=== PATIENT | female | born 1965 | race Caucasian/White ===

== ENCOUNTER 2017-03-31 18:09 | Observation (INO) | payer BC, OTHER ==
[~2017-03-31] VITALS: Ht 167.6 cm; Wt 55.5 kg
[~2017-03-31 18:09] MED LIST: PERC5TAB12 PO; PROPOFOL 200 MG/20 ML AMP IV ONE; TYLE500T PO
[2017-03-31 18:12] VITALS: BP 157/77; PULSE 78; RESP 20; TEMP 98.3; O2SAT 98
[2017-03-31] MEDS ORDERED: SODIUM CHLOR 0.9% 1000 ML INJ 1,000 ML IV SCH (19:24)
[2017-03-31] MEDS ORDERED: ONDANSETRON HCL 4 MG/2 ML VIAL IVP ONE (19:30)
[2017-03-31] MEDS ORDERED: SODIUM CHLORIDE 0.9% FLUSH 10 ML FLUSH IV FLUSH PRN ×2 (19:30→21:45)
[2017-03-31] MEDS ORDERED: PANTOPRAZOLE SODIUM 40 MG VIAL IVP ONE (19:30)
--- NOTE | 2017-03-31 19:34 | PD ---
HPI Chief Complaint: Abdominal Pain Time Seen by Provider: 19:24 Travel History International Travel<30 days: No Contact w/Intl Traveler<30days: No Traveled to known affect area: No History of Present Illness HPI 51-year-old female presents to the emergency department by private transportation the care of her for evaluation of abdominal pain with vomiting. Patient was just seen by her stranding machine operator Dr. her chopra that he center from the office to the emergency room for further evaluation of abdominal pain and possible bowel obstruction. Patient has a history of inflammatory bowel disease/Crohn's and has undergone partial colectomy in the past. Patient states she's had progressively worsening abdominal pain over the past 2 weeks. Patient states she has not had a bowel movement or passed flatus 6 days. Patient states her emesis reminds her of stool. Patient denies bilious emesis coffee-ground emesis or hematemesis. Patient denies fever or chills. Patient was in the emergency department for [facility] yesterday for evaluation a CT abdomen and pelvis was reportedly negative for acute process. Patient was given prescription for oxycodone 7.5 mg to be taken for pain. Patient rates her pain as 8/10 in intensity. Patient states she is status post hysterectomy and cholecystectomy. Patient with history of endometriosis as well. He should also has history of seizure disorder and anxiety depression. Patient denies any recent change to her medications. No reported or voiced complaint of upper respiratory infection symptoms shortness of breath chest pain flank pain urinary symptoms injury or fall. PFSH Past Medical History Narrative Medical Inflammatory bowel disease/Crohn's with partial colectomy endometriosis with hysterectomy cholecystectomy anxiety depression seizure disorder wrist surgery; occasional alcohol use tobacco use; nursing notes reviewed Autoimmune Disease: Yes (CROHN'S) Diminished Hearing: No Reproductive: Yes (Endometriosis; Had uterus reconstructed for 2nd .) Immunizations Current: No Seizures: Yes (Last seizure was May 2009 "small one" in 's office ) Menopausal: Yes : 3 Para: 3 Miscarriage: 0 : 0 Past Surgical History Abdominal Surgery: Yes (COLECTOMY R/T CROHN'S) AICD: No Body Medical Devices: HARDWARE LEFT WRIST Gynecologic Surgery: Yes Hysterectomy: Yes (Total) Joint Replacement: No Pacemaker: No Social History Alcohol Use: Yes (Occassionally) Tobacco Use: Yes (1PPD) Substance Use: No Allergies-Medications (Allergen,Severity, Reaction): Coded Allergies: penicillin G (Unverified Allergy, Mild, HIVES, 03/23/17) Reported Meds & Prescriptions Reported Meds & Active Scripts Active Percocet 5-325 mg (Oxycodone/Acetaminophen) 1 Tab 1 Tab PO Q4H PRN Reported Tylenol (Acetaminophen) 500 Mg Tab 1,000 Mg PO Q6H Review of Systems Except as stated in HPI: all other systems reviewed are Neg General / Constitutional: No: Fever, Chills HENT: No: Congestion Cardiovascular: No: Chest Pain or Discomfort Respiratory: No: Shortness of Breath Gastrointestinal: Positive: Nausea, Vomiting, Abdominal Pain, Constipation, Changes in Bowel Habits (no BM or flatus x 6 days), No: Diarrhea, Hematemesis, Hematochezia, Loss of Appetite Genitourinary: No: Dysuria Musculoskeletal: No: Myalgias, Arthralgias Skin: No Rash Psychiatric: No: Anxiety Hematologic/Lymphatic: No: Lymph Node Enlargement Physical Exam Narrative GENERAL: Well-developed well-nourished female in no acute distress no respiratory distress; GCS 15; vital signs are normal range except for elevation of blood pressure 157/77 SKIN: Warm and dry. HEAD: Normocephalic. EYES: No scleral icterus. No injection or drainage. NECK: Supple, trachea midline. No JVD or lymphadenopathy. CARDIOVASCULAR: Regular rate and rhythm without murmurs, gallops, or rubs. RESPIRATORY: Breath sounds equal bilaterally. No accessory muscle use. GASTROINTESTINAL: Abdomen soft, diffusely tender primarily right lower quadrant without guarding or rebound, nondistended. MUSCULOSKELETAL: No cyanosis, or edema. BACK: Nontender without obvious deformity. No CVA tenderness. Data Data Last Documented VS Vital Signs Date Time Temp Pulse Resp B/P (MAP) Pulse Ox O2 Delivery O2 Flow Rate FiO2 03/31/17 18:12 98.3 78 20 157/77 (103) 98 Room Air Orders Orders Complete Blood Count With Diff (03/31/17 19:24) Comprehensive Metabolic Panel (03/31/17 19:24) Lipase (03/31/17 19:24) Lactic Acid (03/31/17 19:24) Urinalysis - C+S If Indicated (03/31/17 19:24) Abdomen, Flat & Upright (03/31/17 ) Iv Access Insert/Monitor (03/31/17 19:24) Ecg Monitoring (03/31/17 19:24) Oximetry (03/31/17 19:24) Ondansetron Inj (Zofran Inj) (03/31/17 19:30) Pantoprazole Inj (Protonix Inj) (03/31/17 19:30) Sodium Chlor 0.9% 1000 Ml Inj (Ns 1000 M (03/31/17 19:24) Sodium Chloride 0.9% Flush (Ns Flush) (03/31/17 19:30) MDM Medical Decision Making Medical Screen Exam Complete: Yes Emergency Medical Condition: Yes Medical Record Reviewed: Yes Differential Diagnosis Abdominal pain, small bowel dissection, exacerbation Crohn's disease/ inflammatory bowel disease, appendicitis, colitis, dehydration, electrolyte disturbance Narrative Course IV access obtained zofran 4 mg IV and dilaudid 1 mg IV administered and IV fluid Hazel Nath MD Mar 31, 2017 19:34
[2017-03-31 19:50] VITALS: BP 112/66; PULSE 65; RESP 18; O2SAT 98
[2017-03-31 20:04] LABS: AUTOMATED NEUTROPHIL # 5.9 TH/MM3 (1.8-7.7); BASOPHIL # 0.1 TH/MM3 (0-0.2); BASOPHIL % 0.6 % (0.0-2.0); EOSINOPHIL # 0.1 TH/MM3 (0-0.4); EOSINOPHIL % 1.2 % (0.0-4.0); HEMATOCRIT 44.2 % (35.0-46.0); HEMO FLAGS DIFF FINAL; LYMPHOCYTE # 2.7 TH/MM3 (1.0-4.8); MEAN CELL VOLUME 96.3 FL (80.0-100.0); MEAN CORPUSCULAR HEMOGLOBIN 31.8 PG (27.0-34.0); MONO % 8.3 % (0.0-8.0); NEUT % 61.9 % (16.0-70.0); PLATELET COUNT 230 TH/MM3 (150-450); RED BLOOD COUNT 4.59 MIL/MM3 (4.00-5.30); RED CELL DISTRIBUTION WIDTH 13.5 % (11.6-17.2); WHITE BLOOD COUNT 9.5 TH/MM3 (4.0-11.0)
[2017-03-31 20:07] LABS: BLOOD, URINE TRACE (NEG); COMMENT (UR) CULT NOT INDICATED; CULTURE IF INDICATED CULT NOT INDICATED; GLUCOSE,URINE NEG (NEG); KETONE, URINE NEG (NEG); MUCUS URINE FEW /lpf (OCC); NITRITE,URINE NEG (NEG); PH, URINE 5.5 (5.0-8.5); SQUAMOUS EPITHELIAL CELL URINE 3 /hpf (0-5); URINE COLOR YELLOW (YELLW/STRAW)
[2017-03-31 20:21] LABS: ALT (GPT) 464 U/L (10-53); ANION GAP 4 MEQ/L (5-15); AST (GOT) 520 U/L (15-37); BICARBONATE 30.3 MEQ/L (21.0-32.0); BLOOD UREA NITROGEN 14 MG/DL (7-18); CHLORIDE 106 MEQ/L (98-107); GLOMERULAR FILTRATION RATE 65 ML/MIN (>89); POTASSIUM 3.9 MEQ/L (3.5-5.1); SODIUM (NA) 140 MEQ/L (136-145)
[2017-03-31 20:24] LABS: ALKALINE PHOSPHATASE 149 U/L (45-117); TOTAL BILIRUBIN ADULT 0.4 MG/DL (0.2-1.0)
--- NOTE | 2017-03-31 20:37 | RADRPT ---
EXAM DATE/TIME: 03/31/2017 20:27 [facility] COMPARISON: No previous studies available for comparison. INDICATIONS : Abdominal pain, vomiting for 2 weeks MEDICAL HISTORY : Crohn's disease SURGICAL HISTORY : Cholecystectomy. Large bowel resection ENCOUNTER: Initial ACUITY: 1 day PAIN SCORE: 10/10 LOCATION: Bilateral upper abdomen FINDINGS: Supine and upright views of the abdomen were performed. The abdominal bowel gas pattern is normal. No evidence of obstruction or free air. No acute bony findings. CONCLUSION: 1. No acute findings. Dave Bowers MD on March 31, 2017 at 20:33 Board Certified Radiologist. This report was verified electronically.
[2017-03-31] MEDS ORDERED: SODIUM CHLOR 0.9% 1000 ML INJ 1,000 ML IV ONE (20:45)
[2017-03-31] MEDS ORDERED: HYDROmorphone HCL PF 1 MG/ML VIAL IV PUSH ONE ×2 (20:45→22:15)
[2017-03-31] MEDS ORDERED: SODIUM CHLORIDE 0.9% FLUSH 10 ML FLUSH IVF PRN (21:30)
[2017-03-31] MEDS ORDERED: NALOXONE HCL 0.4 MG/ML AMP IV PRN (21:45)
[2017-03-31 22:08] VITALS: BP 165/62; PULSE 59; RESP 18; O2SAT 96
[2017-04-01] VITALS (9 sets, daily range): BP systolic 91–129; BP diastolic 54–77; PULSE 56–65; RESP 16–21; TEMP 97.7–98.3; O2SAT 95–100
[2017-04-01] MEDS ORDERED: MORPHINE SULFATE 4 MG/ML INJ IV PUSH PRN
[2017-04-01] MEDS ORDERED: ONDANSETRON HCL 4 MG/2 ML VIAL IV PUSH PRN
--- NOTE | 2017-04-01 04:01 | HHI.HP ---
HPI Service [facility] Primary Care Physician No Primary Care Physician Admission Diagnosis Vomiting; elevated transaminases;h/o Crohns', h/o sbo Diagnoses: (1) Abdominal pain (2) Nausea & vomiting Chief Complaint: Abdominal pain, nausea, vomiting Travel History International Travel<30 Days: No Contact w/Intl Traveler <30 Da: No Traveled to Known Affected Are: No History of Present Illness Written by Tiana Montoya, acting as scribe for Dr. Ocampo on 04/01/17 at 04:00. Last BM 6 days ago; has been having severe abdominal pain with nausea and vomiting that she believes is related to her reported history of Crohn's disease. Denies hematochezia or black stools. States that she was sent by baggage handling supervisor Dr. Du for evaluation after he saw her for "two minutes " in his office yesterday. Denies fever. Reports that she is vomiting stool. Over the last two weeks: No n/v, fevers, syncope, chest pain. The patient reports that she is s/p hemicolectomy for Crohn's Does not take any immunosuppressant medications. The patient is very rude and abrasive toward examiner throughout visit. Towards the end of the visit, she starts questioning treatment recommendation by insisting that Crohn's disease is not treated with steroids and stating that in "all of her years with Crohn's disease", she has never been placed on steroids. She was at [facility] on 03/30/17 for mild colitis per CT abdomen - records from [facility] reviewed. Review of Systems Except as stated in HPI: all other systems reviewed are Neg Past Family Social History Past Medical History Crohn's disease Denies any other medical conditions. Past Surgical History Hysterectomy Hemicolectomy - Crohn's - strangulation of bowel/bowel obstruction Reported Medications Reported Meds & Active Scripts Active No Active Prescriptions or Reported Medications . Allergies: Coded Allergies: penicillin G (Verified Allergy, Mild, HIVES, 03/31/17) Active Ordered Medications Current Medications Ondansetron HCl (Zofran Inj) 4 mg ONCE ONCE IVP Last administered on 19:51; Start 03/31/17 at 19:30; Stop 03/31/17 at 19:31; Status DC Pantoprazole Sodium (Protonix Inj) 40 mg ONCE ONCE IVP Last administered on 19:51; Start 03/31/17 at 19:30; Stop 03/31/17 at 19:31; Status DC Sodium Chloride 1,000 ml @ 125 mls/hr Q8H IV Last administered on 03/31/17 19 :51; Start 03/31/17 at 19:24; Stop 04/01/17 at 03:23; Status DC Sodium Chloride (NS Flush) 2 ml UNSCH PRN IV FLUSH FLUSH AFTER USING IV ACCESS ; Start 03/31/17 at 19:30; Stop 03/31/17 at 21:45; Status DC Hydromorphone HCl (Dilaudid Pf Inj) 0.5 mg ONCE ONCE IV PUSH Last administered on 03/31/17 20:55; Start 03/31/17 at 20:45; Stop 03/31/17 at 20:46 ; Status DC Sodium Chloride 1,000 ml @ 999 mls/hr BOLUS ONCE IV ; Start 03/31/17 at 20:45 ; Stop 03/31/17 at 21:45; Status DC Sodium Chloride (NS Flush) 2 ml BID IV FLUSH ; Start 04/01/17 at 09:00 Sodium Chloride (NS Flush) 2 ml UNSCH PRN IVF FLUSH AFTER USING IV ACCESS; Start 03/31/17 at 21:30 Sodium Chloride (NS Flush) 2 ml UNSCH PRN IV FLUSH FLUSH AFTER USING IV ACCESS ; Start 03/31/17 at 21:45; Stop 03/31/17 at 21:45; Status DC Sodium Chloride (NS Flush) 2 ml BID IV FLUSH ; Start 04/01/17 at 09:00; Stop at 09:00; Status DC Naloxone HCl (Narcan Inj) 0.4 mg UNSCH PRN IV SEE LABEL COMMENTS; Start at 21:45 Hydromorphone HCl (Dilaudid Pf Inj) 0.5 mg ONCE ONCE IV PUSH Last administered on 03/31/17 22:15; Start 03/31/17 at 22:15; Stop 03/31/17 at 22:16 ; Status DC Pneumococcal Polyvalent Vaccine (Pneumovax-23 Inj) 25 mcg ONCE ONCE IM ; Start 04/01/17 at 10:00; Stop 04/01/17 at 10:01 Influenza Virus Vaccine (Flu (Quadrivalent) Vaccine Inj) 0.5 ml ONCE ONCE IM ; Start 04/01/17 at 10:00; Stop 04/01/17 at 10:01; Status Cancel Ondansetron HCl (Zofran Inj) 4 mg Q6HR PRN IV PUSH NAUSEA OR VOMITING; Start at 00:00 Morphine Sulfate (Morphine Inj) 3 mg Q3H PRN IV PUSH PAIN SCALE 5 TO 10 Last administered on 04/01/17t 00:12; Start 04/01/17 at 00:00 . Family History Denies any family medical illnesses . Social History Tobacco: smokes 1 PPD Alcohol: social use Illicit Drugs: denies . Physical Exam Vital Signs Vital Signs Date Time Temp Pulse Resp B/P (MAP) Pulse Ox O2 Delivery O2 Flow Rate FiO2 04/01/17 01:30 18 04/01/17 00:01 98.1 57 16 91/54 (66) 95 03/31/17 23:21 18 03/31/17 22:44 03/31/17 22:08 59 18 165/62 (96) 96 Room Air 03/31/17 19:50 18 98 Room Air 03/31/17 19:50 65 18 112/66 (81) 98 Room Air 03/31/17 19:50 98 21 03/31/17 18:12 98.3 78 20 157/77 (103) 98 Room Air Physical Exam GENERAL: This is an aggravated, abrasive female patient, in no apparent distress. SKIN: No rashes. Cool and dry. HEAD: Atraumatic. Normocephalic. No temporal or scalp tenderness. EYES: Pupils equal round and reactive. No injection or drainage. ENT: Nose without bleeding, purulent drainage or septal hematoma. Airway patent. NECK: Trachea midline. No JVD. CARDIOVASCULAR: Regular rate and rhythm without murmurs, gallops, or rubs. RESPIRATORY: Clear to auscultation. Breath sounds equal bilaterally. No wheezes , rales, or rhonchi. GASTROINTESTINAL: Abdomen soft, non-tender, nondistended. No guarding. MUSCULOSKELETAL: Extremities without clubbing, cyanosis, or edema. No calf tenderness. NEUROLOGICAL: Awake and alert. Motor and sensory grossly within normal limits. . Laboratory Laboratory Tests Test 03/31/17 19:40 White Blood Count 9.5 Red Blood Count 4.59 Hemoglobin 14.6 Hematocrit 44.2 Mean Corpuscular Volume 96.3 Mean Corpuscular Hemoglobin 31.8 Mean Corpuscular Hemoglobin Concent 33.0 Red Cell Distribution Width 13.5 Platelet Count 230 Mean Platelet Volume 8.0 Neutrophils (%) (Auto) 61.9 Lymphocytes (%) (Auto) 28.0 Monocytes (%) (Auto) 8.3 Eosinophils (%) (Auto) 1.2 Basophils (%) (Auto) 0.6 Neutrophils # (Auto) 5.9 Lymphocytes # (Auto) 2.7 Monocytes # (Auto) 0.8 Eosinophils # (Auto) 0.1 Basophils # (Auto) 0.1 CBC Comment DIFF FINAL Differential Comment Urine Color YELLOW Urine Turbidity CLEAR Urine pH 5.5 Urine Specific [place] 1.035 Urine Protein TRACE Urine Glucose (UA) NEG Urine Ketones NEG Urine Occult Blood TRACE Urine Nitrite NEG Urine Bilirubin NEG Urine Urobilinogen 2.0 Urine Leukocyte Esterase SMALL Urine RBC 3 Urine WBC 2 Urine Squamous Epithelial Cells 3 Urine Mucus FEW Microscopic Urinalysis Comment CULT NOT INDICATED Blood Urea Nitrogen 14 Creatinine 0.91 Random Glucose 90 Total Protein 7.2 Albumin 4.0 Calcium Level 9.1 Alkaline Phosphatase 149 Aspartate Amino Transf (AST/SGOT) 520 Alanine Aminotransferase (ALT/SGPT) 464 Total Bilirubin 0.4 Sodium Level 140 Potassium Level 3.9 Chloride Level 106 Carbon Dioxide Level 30.3 Anion Gap 4 Estimat Glomerular Filtration Rate 65 Lactic Acid Level 0.8 Lipase 305 Result Diagram: 03/31/17193903/31/171939 Imaging Last Impressions Abdomen X-Ray 03/31/17 0000 Signed Impressions: Service Date/Time: Friday, March 31, 2017 20:27 - CONCLUSION: 1. No acute findings. Dave Bowers MD . Caprini VTE Risk Assessment Caprini VTE Risk Assessment: Mod/High Risk (score >= 2) Caprini Risk Assessment Model Point Value = 1 Point Value = 2 Point Value = 3 Point Value = 5 Age 41-60 Minor surgery BMI > 25 kg/m2 Swollen legs Varicose veins or History of unexplained or recurrent spontaneous Oral contraceptives or hormone replacement Sepsis (< 1 month) Serious lung disease, including pneumonia (< 1 month) Abnormal pulmonary function Acute myocardial infarction Congestive heart failure (< 1 month) History of inflammatory bowel disease Medical patient at bed rest Age 61-74 Arthroscopic surgery Major open surgery (> 45 min) Laparoscopic surgery (> 45 min) Malignancy Confined to bed (> 72 hours) Immobilizing plaster cast Central venous access Age >= 75 History of VTE Family history of VTE Factor V Leiden Prothrombin [id number] Lupus anticoagulant Anticardiolipin antibodies Elevated serum homocysteine Heparin-induced thrombocytopenia Other congenital or acquired thrombophilia Stroke (< 1 month) Elective arthroplasty Hip, pelvis, or leg fracture Acute spinal cord injury (< 1 month) Prophylaxis Regimen Total Risk Factor Score Risk Level Prophylaxis Regimen 0-1 Low Early ambulation 2 Moderate Order ONE of the following: *Sequential Compression Device (SCD) *Heparin 5000 units SQ BID 3-4 Higher Order ONE of the following medications: *Heparin 5000 units SQ TID *Enoxaparin/Lovenox 40 mg SQ daily (WT < 150 kg, CrCl > 30 mL/min) *Enoxaparin/Lovenox 30 mg SQ daily (WT < 150 kg, CrCl > 10-29 mL/min) *Enoxaparin/Lovenox 30 mg SQ BID (WT < 150 kg, CrCl > 30 mL/min) AND/OR *Sequential Compression Device (SCD) 5 or more Highest Order ONE of the following medications: *Heparin 5000 units SQ TID (Preferred with Epidurals) *Enoxaparin/Lovenox 40 mg SQ daily (WT < 150 kg, CrCl > 30 mL/min) *Enoxaparin/Lovenox 30 mg SQ daily (WT < 150 kg, CrCl > 10-29 mL/min) *Enoxaparin/Lovenox 30 mg SQ BID (WT < 150 kg, CrCl > 30 mL/min) AND *Sequential Compression Device (SCD) Assessment and Plan Problem List: (1) Abdominal pain ICD Code: R10.9 - Unspecified abdominal pain Status: Acute (2) Nausea & vomiting ICD Code: R11.2 - Nausea with vomiting, unspecified Status: Acute Assessment and Plan Abdominal pain, nausea, and vomiting - patient refusing treatment with steroids - Changed PRN morphine to Toradol 15 mg IV q6h PRN pain > 6 - Zofran 4 mg IV q6h PRN n/v - consult gastroenterology - Dr. Du - appreciate assistance DVT prophylaxis - TEDs/SCDs This note was transcribed by scribe [Tiana Montoya]. I, Dr. Sam Ocampo personally performed the history, physical exam, and medical decision making; and confirmed the accuracy of the information in the transcribed note. Authenticated by Dr. Sam Ocampo on 04/01/17 at 04:00. Discussed Condition With ER physician, RN, and patient . Problem Qualifiers (1) Abdominal pain: Qualified Codes: R10.84 - Generalized abdominal pain (2) Nausea & vomiting: Tiana Montoya Apr 01, 2017 04:01 Sam Ocampo MD Apr 01, 2017 04:49
[2017-04-01] MEDS ORDERED: KETOROLAC TROMETHAMINE 30 MG/ML (IVP) VIAL IV PUSH PRN (05:15)
[2017-04-01 05:35] LABS: AUTOMATED NEUTROPHIL # 4.4 TH/MM3 (1.8-7.7); BASOPHIL # 0.1 TH/MM3 (0-0.2); BASOPHIL % 0.7 % (0.0-2.0); EOSINOPHIL # 0.1 TH/MM3 (0-0.4); EOSINOPHIL % 1.7 % (0.0-4.0); HEMATOCRIT 39.2 % (35.0-46.0); HEMO FLAGS DIFF FINAL; LYMPH % 35.6 % (9.0-44.0); LYMPHOCYTE # 2.8 TH/MM3 (1.0-4.8); MEAN CELL VOLUME 96.7 FL (80.0-100.0); MEAN CORPUSCULAR HEMOGLOBIN 31.9 PG (27.0-34.0); MONO % 6.6 % (0.0-8.0); NEUT % 55.4 % (16.0-70.0); PLATELET COUNT 200 TH/MM3 (150-450); RED BLOOD COUNT 4.06 MIL/MM3 (4.00-5.30); RED CELL DISTRIBUTION WIDTH 13.7 % (11.6-17.2); WHITE BLOOD COUNT 7.9 TH/MM3 (4.0-11.0)
[2017-04-01 05:46] LABS: BICARBONATE 24.5 MEQ/L (21.0-32.0); POTASSIUM 4.3 MEQ/L (3.5-5.1)
--- NOTE | 2017-04-01 08:36 | PD.CONS ---
HPI History of Present Illness This is a 51 year old female who was diagnosed with Crohn's eight years ago, when she required surgery for a bowel obstruction. She reports that she was on a "bunch of medications" including Humira and other pills, but reports she stopped them 4-5 years ago. Her last colonoscopy was 4 years ago. This was done at [facility]. She reports that since that time, she has had her "good days and bad days." She reports with her flares, she gets constipated and has significant abdominal pain. This flare started up about 2 weeks ago. She has severe mid abdominal pain that is sharp and "feels as if someone is ripping out my belly button" that radiates to her entire abdomen and back. She has associated nausea/vomiting, bilious material but no hematemesis. Her last bowel movement was 6 days ago. She does not take anything for constipation. She denies any rectal bleeding. She has lost about 10 lbs in the past 2-3 months. There are no aggravating factors. She is taking Advil at home, but reports that this is not helping. She states she is very frustrated because she is hungry and in pain and no one is helping her and she reports that she could be doing this at home. She reports that she saw Dr. Du yesterday and he took a look at her belly and told her to go to the ER. She denies any history of liver disease. She reports that she only occasionally drinks ETOH. She denies any new medications or herbal supplements. She was seen in the ER at [facility] on 03/30/17 for complaints of abdominal pain 2 weeks. At that time her CBC was unremarkable other than WBC 11.0. LFTs were total bilirubin 0.3, AST 18, ALT 17, alkaline phosphatase 95. CT scan of the abdomen and pelvis with IV contrast revealed a mild colitis suspected in the rectosigmoid colon. There may be one thickened loop of small bowel in the proximal jejunum where this may be secondary to under distention. The distal small bowel has fluid within it which may represent diarrhea. No evidence to suggest obstruction. She was discharged with Lortab Zofran Flagyl and Cipro and instructed to follow-up with GI in 1-2 days. The patient was seen yesterday in our office and was referred to the hospital for significant abdominal pain (Kayla Barker) PFSH Past Medical History Crohn's disease Past Surgical History Hysterectomy Hemicolectomy - Crohn's - strangulation of bowel/bowel obstruction Cholecystectomy (Kayla Barker) Coded Allergies: penicillin G (Verified Allergy, Mild, HIVES, 03/31/17) Medications Allergies Coded Allergies Type Severity Reaction Last Updated Verified penicillin G Allergy Mild HIVES 03/31/17 Yes Active Scripts Medications Dose Route/Sig Max Daily Dose Days Date Category No Active Prescriptions or Reported Medications Rx Advil Family History No family hx of IBD, esophageal, gastric, or colorectal cancer Social History She smokes 1ppd for many years Occasional ETOH use No illicit drug use. (Kayla Barker) Review of Systems Constitutional: COMPLAINS OF: Weight loss, DENIES: Fever, Chills, Change in appetite Respiratory: DENIES: Cough, Shortness of breath Cardiovascular: DENIES: Chest pain Gastrointestinal: COMPLAINS OF: Abdominal pain, Constipation, Nausea, Vomiting , DENIES: Black stools, Bloody stools, Diarrhea, Swelling of Abdomen, Heartburn , Hematemesis Musculoskeletal: DENIES: Joint pain Integumentary: DENIES: Abnormal pigmentation Hematologic/lymphatic: DENIES: Bruising Neurologic: DENIES: Headache Psychiatric: DENIES: Confusion (Kayla Barker) GI Exam Vitals I&O Vital Signs Date Time Temp Pulse Resp B/P (MAP) Pulse Ox O2 Delivery O2 Flow Rate FiO2 04/01/17 08:22 97.7 59 21 108/56 (73) 98 04/01/17 08:07 21 04/01/17 06:22 18 04/01/17 04:32 98.1 64 18 101/65 (77) 97 04/01/17 01:30 18 04/01/17 00:01 98.1 57 16 91/54 (66) 95 03/31/17 23:21 18 03/31/17 22:44 03/31/17 22:08 59 18 165/62 (96) 96 Room Air 03/31/17 19:50 18 98 Room Air 03/31/17 19:50 65 18 112/66 (81) 98 Room Air 03/31/17 19:50 98 21 03/31/17 18:12 98.3 78 20 157/77 (103) 98 Room Air I/O 03/31/17 03/31/17 03/31/17 04/01/17 04/01/17 04/01/17 07:00 15:00 23:00 07:00 15:00 23:00 Intake Total 1000 ml 300 ml Balance 1000 ml 300 ml Intake Oral 300 ml IV Total 1000 ml Imaging Last Impressions Abdomen X-Ray 03/31/17 0000 Signed Impressions: Service Date/Time: Friday, March 31, 2017 20:27 - CONCLUSION: 1. No acute findings. Dave Bowers MD Laboratory Test 03/31/17 19:40 04/01/17 05:20 White Blood Count 9.5 TH/MM3 7.9 TH/MM3 Red Blood Count 4.59 MIL/MM3 4.06 MIL/MM3 Hemoglobin 14.6 GM/DL 12.9 GM/DL Hematocrit 44.2 % 39.2 % Mean Corpuscular Volume 96.3 FL 96.7 FL Mean Corpuscular Hemoglobin 31.8 PG 31.9 PG Mean Corpuscular Hemoglobin Concent 33.0 % 33.0 % Red Cell Distribution Width 13.5 % 13.7 % Platelet Count 230 TH/MM3 200 TH/MM3 Mean Platelet Volume 8.0 FL 8.0 FL Neutrophils (%) (Auto) 61.9 % 55.4 % Lymphocytes (%) (Auto) 28.0 % 35.6 % Monocytes (%) (Auto) 8.3 % 6.6 % Eosinophils (%) (Auto) 1.2 % 1.7 % Basophils (%) (Auto) 0.6 % 0.7 % Neutrophils # (Auto) 5.9 TH/MM3 4.4 TH/MM3 Lymphocytes # (Auto) 2.7 TH/MM3 2.8 TH/MM3 Monocytes # (Auto) 0.8 TH/MM3 0.5 TH/MM3 Eosinophils # (Auto) 0.1 TH/MM3 0.1 TH/MM3 Basophils # (Auto) 0.1 TH/MM3 0.1 TH/MM3 CBC Comment DIFF FINAL DIFF FINAL Differential Comment Urine Color YELLOW Urine Turbidity CLEAR Urine pH 5.5 Urine Specific [place] 1.035 Urine Protein TRACE mg/dL Urine Glucose (UA) NEG mg/dL Urine Ketones NEG mg/dL Urine Occult Blood TRACE Urine Nitrite NEG Urine Bilirubin NEG Urine Urobilinogen 2.0 MG/DL Urine Leukocyte Esterase SMALL Urine RBC 3 /hpf Urine WBC 2 /hpf Urine Squamous Epithelial Cells 3 /hpf Urine Mucus FEW /lpf Microscopic Urinalysis Comment CULT NOT INDICATED Blood Urea Nitrogen 14 MG/DL 12 MG/DL Creatinine 0.91 MG/DL 0.62 MG/DL Random Glucose 90 MG/DL 83 MG/DL Total Protein 7.2 GM/DL Albumin 4.0 GM/DL Calcium Level 9.1 MG/DL 8.0 MG/DL Alkaline Phosphatase 149 U/L Aspartate Amino Transf (AST/SGOT) 520 U/L Alanine Aminotransferase (ALT/SGPT) 464 U/L Total Bilirubin 0.4 MG/DL Sodium Level 140 MEQ/L 140 MEQ/L Potassium Level 3.9 MEQ/L 4.3 MEQ/L Chloride Level 106 MEQ/L 111 MEQ/L Carbon Dioxide Level 30.3 MEQ/L 24.5 MEQ/L Anion Gap 4 MEQ/L 5 MEQ/L Estimat Glomerular Filtration Rate 65 ML/MIN 102 ML/MIN Lactic Acid Level 0.8 mmol/L Lipase 305 U/L Physical Examination HEENT: Normocephalic; atraumatic; no jaundice. CHEST: CTA CARDIAC: RRR ABDOMEN: Soft,mildly distended, nontender; no hepatosplenomegaly; bowel sounds are present in all four quadrants. EXTREMITIES: No clubbing, cyanosis, or edema. SKIN: Normal; no rash; no jaundice. BARREL INSPECTOR: No focal deficits; alert and oriented times three. (Kayla Barker) Assessment and Plan Plan ASSESSMENT: - Abdominal pain with associated n/v/constipation. Pt reports a hx of Crohn's. She has had abdominal pain x 2 weeks- severe constant, mid abdominal pain with n/v bilious material and no BM x 6 days. She was seen at [facility] (03/30/17) for abdominal pain. CBC mild WBC 11.0. CT scan of the abdomen and pelvis with IV contrast revealed a mild colitis suspected in the rectosigmoid colon. There may be one thickened loop of small bowel in the proximal jejunum where this may be secondary to under distention. The distal small bowel has fluid within it which may represent diarrhea. No evidence to suggest obstruction. She was discharged with Lortab Zofran Flagyl and Cipro and instructed to follow-up with GI in 1-2 days. Cont. Flagyl, Cipro. Stool studies. EGD/Colonoscopy. If the patient has not had a bowel movement in 6 days, I don't know if she will be cleaned out in one day, but the patient is insisting on having this done tomorrow. Will prep patient for EGD/Colonoscopy tomorrow. Sed rate. - Elevated LFTs. She was seen in the ER at [facility] on 03/30/17 for complaints of abdominal pain 2 weeks- LFTs were total bilirubin 0.3, AST 18, ALT 17, alkaline phosphatase 95. She denies taking any medications but she was given rx for Lortab, Zofran, Flagyl, and Cipro . No hx of liver disease. Occasional ETOH use. Will check RUQ US, liver workup. ? Drug induced hepatitis if she overmedicated on above meds given at ER- she denies taking these meds. Will also get toxicology screen. - Reported hx of Crohn's, dx 8 years ago when she required surgery for a bowel obstruction (large bowel) She reports that she was on a "bunch of medications" including Humira and other pills, but reports she stopped them 4-5 years ago. Her last colonoscopy was 4 years ago at [facility]. PLAN: - Plan for egd/colonoscopy in am - Obtain consents - Clear liquids - Golytely prep - RUQ US - Toxicology screen - Acetaminophen level - Hepatitis panel - ANNALEE, ASMA, AMA - Ceruloplasmin, Ferritin - Iron Saturation - Ferritin level - Sed rate - Stool studies- Cdiff, O&P, Giardia, C/S - LFT in am - Supportive care - Further recommendations to follow based on results of above - Pt seen and examined by Dr. Seay and myself and this note is written on his behalf (Kayla Barker) Physician Comments Seen and examined, plan discussed with the patient. Will proceed with EGD and Colonoscopy in AM. (Kiera Seay MD) Kayla Barker Apr 01, 2017 08:36 Kiera Seay MD Apr 01, 2017 09:37
[2017-04-01] MEDS ORDERED: SODIUM CHLORIDE 0.9% FLUSH 10 ML FLUSH IV FLUSH SCH (09:00)
[2017-04-01] MEDS: SODIUM CHLORIDE 0.9% FLUSH 10 ML FLUSH IV FLUSH SCH ×2 (09:00→21:00)
[2017-04-01] MEDS ORDERED: PANTOPRAZOLE SODIUM 40 MG VIAL IV PUSH SCH (09:15)
[2017-04-01] MEDS: MORPHINE SULFATE 4 MG/ML INJ IV PUSH PRN ×4 (09:47→21:34)
[2017-04-01] MEDS ORDERED: PNEUMOCOCCAL POLYVALENT INJ 25 MCG/0.5 ML SYR IM ONE (10:00)
[2017-04-01] MEDS: PANTOPRAZOLE SODIUM 40 MG VIAL IV PUSH SCH (10:00)
[2017-04-01] MEDS ORDERED: INFLUENZA VIRUS VACCINE (QUADRIVALENT) 0.5 ML SYR IM ONE (10:00)
[2017-04-01 11:50] LABS: TRANSFERRIN IRON PROFILE 252 MG/DL (200-360)
[2017-04-01 11:53] LABS: ACETAMINOPHEN LESS THAN 2.0 MCG/ML (10.0-30.0); FERRITIN 297 NG/ML (8-252)
[2017-04-01] MEDS ORDERED: PEG (High)/E-LYTE SOLN 4000 ML BTL PO ONE (16:00)
--- NOTE | 2017-04-01 16:45 | RADRPT ---
EXAM DATE/TIME: 04/01/2017 14:58 [place] COMPARISON: No previous studies available for comparison. INDICATIONS : Increased lab values. MEDICAL HISTORY : Seizures. Crohn's disease. SURGICAL HISTORY : Cholecystectomy. Hysterectomy. Colon surgery. ENCOUNTER: Initial ACUITY: 1 day PAIN SCORE: 2/10 LOCATION: Bilateral upper quadrant MEASUREMENTS: LIVER: 18.6 cm length COMMON DUCT: 5 mm RIGHT KIDNEY: 10.8 x 4.1 x 6.1 cm SPLEEN: 7.6 cm length FINDINGS: LIVER: Normal echotexture without focal lesion or ductal dilatation. COMMON DUCT: No intraluminal mass or stone visualized. GALLBLADDER: Surgically absent. PANCREAS: The visualized portions are within normal limits. RIGHT KIDNEY: No hydronephrosis, stone or mass. SPLEEN: No focal lesion. CONCLUSION: 1. Prior cholecystectomy. Otherwise, unremarkable exam. Anirudh Hunt Jr., MD on April 01, 2017 at 16:39 Board Certified Radiologist. This report was verified electronically.
[2017-04-01] MEDS ORDERED: BISACODYL EC 5 MG TABEC PO ONE (18:00)
[2017-04-01] MEDS ORDERED: MAGNESIUM CITRATE SOLN 300 ML BTL PO ONE (18:15)
[2017-04-02] MEDS: MORPHINE SULFATE 4 MG/ML INJ IV PUSH PRN ×4 (02:06→13:07)
[2017-04-02 02:57] VITALS: BP 112/60; PULSE 57; RESP 16; TEMP 97.6; O2SAT 98
[2017-04-02 06:31] LABS: BASOPHIL # 0.3 TH/MM3 (0-0.2); BASOPHIL % 3.7 % (0.0-2.0); EOSINOPHIL # 0.2 TH/MM3 (0-0.4); EOSINOPHIL % 2.6 % (0.0-4.0); LYMPH % 29.1 % (9.0-44.0); LYMPHOCYTE # 2.5 TH/MM3 (1.0-4.8); MEAN CELL VOLUME 98.6 FL (80.0-100.0); MEAN CORPUSCULAR HEMOGLOBIN 32.9 PG (27.0-34.0); MEAN CORPUSCULAR HGB CONC 33.4 % (32.0-36.0); MONO % 6.9 % (0.0-8.0); NEUT % 57.7 % (16.0-70.0); PLATELET COUNT 187 TH/MM3 (150-450); RED BLOOD COUNT 4.57 MIL/MM3 (4.00-5.30); RED CELL DISTRIBUTION WIDTH 13.9 % (11.6-17.2); WHITE BLOOD COUNT 8.7 TH/MM3 (4.0-11.0)
[2017-04-02 06:32] LABS: HEMO FLAGS AUTO DIFF
[2017-04-02 06:37] LABS: ALKALINE PHOSPHATASE 175 U/L (45-117); ALT (GPT) 401 U/L (10-53); ANION GAP 7 MEQ/L (5-15); AST (GOT) 239 U/L (15-37); BICARBONATE 26.8 MEQ/L (21.0-32.0); BLOOD UREA NITROGEN 8 MG/DL (7-18); CHLORIDE 108 MEQ/L (98-107); GLOMERULAR FILTRATION RATE 96 ML/MIN (>89); SODIUM (NA) 142 MEQ/L (136-145); TOTAL BILIRUBIN ADULT 0.6 MG/DL (0.2-1.0)
[2017-04-02 06:40] LABS: POTASSIUM 4.3 MEQ/L (3.5-5.1)
[2017-04-02 07:11] LABS: SCAN/DIFF AUTO DIFF CONFIRMED
--- NOTE | 2017-04-02 08:07 | HHI.PR ---
Subjective Remarks Follow-up for abdominal pain. The patient complains of generalized abdominal pain, not specifically worse in any area. Pain is unchanged overnight. The patient reports she completed the bowel prep with good stool output. She states she hasn't been allowed to eat anything. When asked about clear liquids she does say that she ate that. She does have a large open can of Katelynn tea and a bag of inés pretzels at bedside. She states she's had vomiting overnight , she cannot specify how many episodes, states to me that count. Going for EGD and colonoscopy today. Objective Vitals Vital Signs Date Time Temp Pulse Resp B/P (MAP) Pulse Ox O2 Delivery O2 Flow Rate FiO2 04/02/17 02:57 97.6 57 16 112/60 (77) 98 04/02/17 02:28 18 04/01/17 22:56 97.9 56 18 99/58 (72) 97 04/01/17 20:32 96 04/01/17 20:16 97.8 65 18 129/77 (94) 98 04/01/17 16:10 98.1 65 21 118/65 (82) 100 04/01/17 12:30 98.3 61 17 111/64 (80) 98 04/01/17 11:59 98.3 61 20 111/64 (80) 98 04/01/17 08:22 97.7 59 21 108/56 (73) 98 04/01/17 08:07 21 I/O 04/01/17 04/01/17 04/01/17 04/02/17 04/02/17 04/02/17 07:00 15:00 23:00 07:00 15:00 23:00 Intake Total 300 ml 200 ml 300 ml Balance 300 ml 200 ml 300 ml Intake Oral 300 ml 200 ml 300 ml Result Diagram: 04/02/17 0458 04/02/17 0548 Imaging Last Impressions Liver Ultrasound 04/01/17 0000 Signed Impressions: Service Date/Time: March 14:58 - CONCLUSION: 1. Prior cholecystectomy. Otherwise, unremarkable exam. Anirudh Hunt Jr., MD Abdomen X-Ray 03/31/17 0000 Signed Impressions: Service Date/Time: Friday, March 31, 2017 20:27 - CONCLUSION: 1. No acute findings. Dave Bowers MD Objective Remarks GENERAL: Well-developed well-nourished. In no acute distress. SKIN: Warm and dry. No lesions noted. HEENT: Normocephalic. Pupils equal and round. Mucous membranes pink and moist. CARDIOVASCULAR: Regular rate and rhythm. No murmur appreciated. RESPIRATORY: No accessory muscle use. Clear to auscultation. Breath sounds equal bilaterally. GASTROINTESTINAL: Abdomen soft, nondistended. Tender to light touch in all quadrants. Bowel sounds x4. MUSCULOSKELETAL: No obvious deformities. No clubbing or cyanosis. No edema. NEUROLOGICAL: Awake and alert. No focal neurological deficits. Moves upper and lower extremities spontaneously. Normal speech. PSYCHIATRIC: Appropriate mood and affect; insight and judgment normal. A/P Problem List: (1) Abdominal pain ICD Code: R10.9 - Unspecified abdominal pain Status: Acute (2) Nausea & vomiting ICD Code: R11.2 - Nausea with vomiting, unspecified Status: Acute Assessment and Plan 51-year-old female with a reported history of Crohn's disease who was sent in by her mobile paint specialist for abdominal pain Abdominal pain, nausea, vomiting: Abdominal x-ray with no acute findings. UDS positive for cannabis. -GI consulted, appreciate input, planning on EGD and colonoscopy -Discussed with GI, pain control with morphine for now, cannot rule out malingering. -IV PPI -Antiemetics as needed -Monitor intake and output Elevated LFTs: AST, ALT, and alkaline phosphatase remain elevated, although are slightly improved today. Hepatitis panel negative. Liver ultrasound essentially unremarkable -GI workup in progress DVT prophylaxis: SCDs Discharge Planning Follow-up GI recommendations Addendum 1200: EGD showed esophagitis and gastritis. Colonoscopy showed ulcers. D/W GI, recommend steroids, PPI, Bentyl, advance diet as tolerated, and follow-up LFTs tomorrow; if the patient is insistent on leaving today, can be discharged from a GI perspective if tolerating diet. Addendum 1345: The patient tolerated full liquid diet and is insistent on going home today. Outpatient LFTs ordered. Follow-up with GI as outpatient. Problem Qualifiers (1) Abdominal pain: Qualified Codes: R10.84 - Generalized abdominal pain (2) Nausea & vomiting: Steven Martinez Apr 02, 2017 08:07
[2017-04-02 08:14] VITALS: BP 105/65; PULSE 57; RESP 16; TEMP 98.5; O2SAT 99
[2017-04-02] MEDS: SODIUM CHLORIDE 0.9% FLUSH 10 ML FLUSH IV FLUSH SCH (09:00)
[2017-04-02] MEDS ORDERED: MIDAZOLAM HCL 2 MG/2 ML VIAL ONE (10:28)
[2017-04-02] MEDS ORDERED: MORPHINE SULFATE PF 10 MG/10 ML VIAL ONE (10:29)
[2017-04-02] MEDS ORDERED: MORPHINE SULFATE 4 MG/ML INJ ONE (10:31)
[2017-04-02] MEDS ORDERED: PROPOFOL 200 MG/20 ML AMP IV ONE (11:08)
--- NOTE | 2017-04-02 11:37 | GIPROC ---
[facility] [address] [facility]. [facility], [address] EGD PROCEDURE REPORT EXAM DATE: 04/02/2017 PATIENT NAME: Rona Landeros MR #: [id number] BIRTHDATE: 1965 ATTENDING: Kiera Seay MD ORDER #: [id number] PUNCHING MACHINE OPERATOR: Nicole Meier and Lalo Osullivan STATUS: inpatient INDICATIONS: The patient is a 51 yr old female here for an EGD due to abdominal pain PROCEDURE PERFORMED: EGD w/ biopsy MEDICATIONS: None and Per Anesthesia. TOPICAL ANESTHETIC: none CONSENT: The patient understands the risks and benefits of the procedure and understands that these risks include, but are not limited to: sedation, allergic reaction, infection, perforation and/or bleeding. Alternative means of evaluation and treatment include, among others: physical exam, x-rays, and/or surgical intervention. The patient elects to proceed with this endoscopic procedure. medical equipment was checked for proper function. Hand hygiene and appropriate measures for infection prevention was taken. After the risks, benefits and alternatives of the procedure were thoroughly explained, Informed consent was verified, confirmed and timeout was successfully executed by the treatment team. The patient was anesthetized with topical anesthesia and the EC-[id number] (Pedi C) endoscope was introduced through the mouth and advanced to the second portion of the duodenum. Retroflexed views revealed no abnormalities The gastroscope was then slowly withdrawn and removed. ESOPHAGUS: There was LA Class A esophagitis noted. STOMACH: There was erythematous moderate gastritis in the gastric antrum. Multiple biopsies were performed using cold forceps. Sample sent for histology. DUODENUM: The duodenal mucosa appeared normal in the bulb and second portion of the duodenum. ADVERSE EVENTS: There were no complications. IMPRESSIONS: 1. There was LA Class A esophagitis noted 2. There was erythematous gastritis in the gastric antrum; multiple biopsies were performed 3. Normal duodenal mucosa in the bulb and second portion of the duodenum 4. Retroflexed views revealed no abnormalities RECOMMENDATIONS: 1. Await biopsy results. Biopsy results will not be ready for 7-10 days. If you don't hear from us in two weeks, call our office for biopsy results. 2. Continue PPI PATIENT CONDITION: stable DISPOSITION: Observation REPEAT EXAM: Return as needed for EGD Kiera Seay MD eSigned: Kiera Seay MD 04/02/2017 11:37 AM cc: PATIENT NAME: Rona Landeros MR#: [id number]
--- NOTE | 2017-04-02 11:40 | GIPROC ---
[facility] [address] [facility]. [facility], [address] COLONOSCOPY PROCEDURE REPORT EXAM DATE: 04/02/2017 PATIENT NAME: Rona Landeros MR #: [id number] BIRTHDATE: 1965 ENDOSCOPIST: Kiera Seay MD ORDER #: [id number] PACKER AND CARRY OUT: Lalo Osullivan and Nicole Meier STATUS: inpatient INDICATIONS: The patient is a 51 yr old female here for a colonoscopy due to abdominal pain PROCEDURE PERFORMED: Colonoscopy with biopsy MEDICATIONS: None and Per Anesthesia. PREP QUALITY: good PREP TYPE:GoLytely ESTIMATED BLOOD LOSS: None CONSENT: The patient understands the risks and benefits of the procedure and understands that these risks include, but are not limited to: sedation, allergic reaction, infection, perforation and/or bleeding. Alternative means of evaluation and treatment include, among others: physical exam, x-rays, and/or surgical intervention. The patient elects to proceed with this endoscopic procedure. medical equipment was checked for proper function. Hand hygiene and appropriate measures for infection prevention was taken. After the risks, benefits and alternatives of the procedure were thoroughly explained, Informed consent was verified, confirmed and timeout was successfully executed by the treatment team. A digital exam revealed internal hemorrhoids The Pentax EC-[id number] endoscope was introduced through the anus and advanced to the ileum. The instrument was then slowly withdrawn as the colon was fully examined. COLON FINDINGS: Multiple small non-bleeding, shallow and clean-based ulcers were found in the terminal ileum. Biopsies were taken around the ulcers. Retroflexed views revealed internal hemorrhoids and Retroflexed views revealed large internal hemorrhoids The scope was then completely withdrawn from the patient and the procedure terminated. PROCEDURE WITHDRAWAL TIME:10minutes ADVERSE EVENTS: There were no complications. IMPRESSIONS: 1. Multiple small ulcers were found in the terminal ileum; biopsies were taken 2. Retroflexed views revealed internal hemorrhoids 3. Retroflexed views revealed large internal hemorrhoids 4. Revealed internal hemorrhoids RECOMMENDATIONS: Await biopsy results. Biopsy results will not be ready for 7-10 days. If you don't hear from us in two weeks, call our office for results. RECALL: NONE Kiera Seay MD eSigned: Kiera Seay MD 04/02/2017 11:40 AM cc:
[2017-04-02 12:42] VITALS: BP 114/59; PULSE 60; RESP 16; TEMP 97.6; O2SAT 96
[2017-04-02] MEDS ORDERED: DICYCLOMINE HCL 20 MG TAB PO PRN (13:00)
[2017-04-02] MEDS: PANTOPRAZOLE SODIUM 40 MG VIAL IV PUSH SCH (13:07)
[2017-04-02] MEDS ORDERED: predniSONE 20 MG TAB PO SCH (13:30)
[2017-04-02] MEDS ORDERED: PRED20 PO (14:49)
[2017-04-02] MEDS ORDERED: DICY20TA10 PO (14:49)
[2017-04-02] MEDS ORDERED: PROT40TA PO (14:49)
[2017-04-02 17:32] LABS: ANA SCREEN NEG (NEG)
--- NOTE | 2017-04-03 18:52 | EKG ---
Date Performed: 04/02/2017 Time Performed: 09:32:22 PTAGE: 51 years EKG: SINUS BRADYCARDIA POSSIBLE RIGHT VENTRICULAR CONDUCTION DELAY BORDERLINE ECG NO PREVIOUS TRACING DOCTOR: Carolyn Gan Interpretating Date/Time 04/03/2017 18:51:02
[2017-04-04 03:51] LABS: MITOCHONDRIAL ABS LESS THAN 20.0 U (<=20.0)
== END 2017-04-02 15:51 | disposition home or self-care (01) ==
LOC: NEPC 18:09 → NEDA 21:30 → NEPHCDU 22:41 → NEDA 04-01 01:32
PROVIDERS: ADMIT Family Medicine; ATTEND Family Medicine
DX: K29.70 Gastritis, unspecified, without bleeding (principal); K63.3 Ulcer of intestine; K20.9 Esophagitis, unspecified; R79.89 Other specified abnormal findings of blood chemistry; K50.90 Crohn's disease, unspecified, without complications; R00.1 Bradycardia, unspecified; F41.9 Anxiety disorder, unspecified; F32.9 Major depressive disorder, single episode, unspecified; F17.210 Nicotine dependence, cigarettes, uncomplicated; N80.9 Endometriosis, unspecified; R56.9 Unspecified convulsions; Z90.49 Acquired absence of other specified parts of digestive tract; K75.9 Inflammatory liver disease, unspecified; R94.31 Abnormal electrocardiogram [ECG] [EKG]; Z79.899 Other long term (current) drug therapy
CPT/HCPCS: 00740; 00810; 43239; 45380; 74020; 76705; 80048; 80053; 80074; 80307; 81001; 82103; 82105; 82390; 82728; 83520; 83540; 83550; 83605; 83690; 85025; 85652; 86038; 86255; 88305; 88312; 93005; 96361; 96374; 96375; 96376; 99285; C9113; G0378; J1170; J1885; J2250; J2270; J2274; J2405; J7030; J7512

== ENCOUNTER 2017-04-02 16:56 | Emergency (ER) | payer BC ==
[~2017-04-02] VITALS: Ht 165.1 cm; Wt 55.5 kg
[~2017-04-02 16:56] MED LIST changes: +DICY20TA10 PO; -PERC5TAB12 PO; +PRED20 PO; -PROPOFOL 200 MG/20 ML AMP IV ONE; +PROT40TA PO; -TYLE500T PO
[2017-04-02 16:59] VITALS: BP 154/77; PULSE 78; RESP 16; TEMP 98.4; O2SAT 98
== END 2017-04-02 20:39 | disposition left against medical advice (07) ==
LOC: NED 16:56
DX: R10.9 Unspecified abdominal pain (principal); Z53.21 Procedure and treatment not carried out due to patient leaving prior to being seen by health care provider
CPT/HCPCS: 99281